=== PATIENT | female | born 1980 | race Caucasian/White ===

== ENCOUNTER 2017-11-14 10:14 | Inpatient (IN) | payer OTHER ==
[2017-11-14 11:29] VITALS: BMI 31.3
[2017-11-14] MEDS: Lactated Ringer's 1,000 ML IV SCH (12:00)
[2017-11-14 13:38] LABS: BASO % 0.3 % (0.0-2.0); EOS # 0.1 K/uL (0.0-0.7); EOS % 1.3 % (0.0-4.0); HEMOGLOBIN 11.9 g/dL (12.0-16.0); LYMPH # 1.7 K/uL (1.0-4.3); LYMPH % 16.9 % (20.0-40.0); MEAN CELL VOLUME 90.1 fl (81.0-99.0); MEAN CORPUSCULAR HGB CONC 34.4 g/dL (33.0-37.0); MEAN PLATELET VOLUME 10.7 fl (7.2-11.7); MONO # 0.6 K/uL (0.0-0.8); MONO % 5.5 % (0.0-10.0); NEUT # 7.9 K/uL (1.8-7.0); RBC 3.84 Mil/uL (3.80-5.20); WHITE BLOOD COUNT 10.3 K/uL (4.8-10.8)
--- NOTE | 2017-11-14 13:44 | OBADHP ---
Datetime: 11/14/2017 13:38 Admit Comment, IP Provider: Patient is a 37-year-old 1 para 0 estimated due date 11/24/2017 estimated gestational age 38+ weeks patient presents to labor and delivery complaining of spontaneous rupture of membranes at about 6:40 AM. Patient reports leakage of fluid fluid patient denies any vag inal bleeding she reports good movement she reports occasional contraction. care has b een unremarkable patient denies any complications Past medical history none Medications vitamins Social history denies alcohol tobacco use care administered by No known drug allergies care unremarkable Review of systems patient denies headache chest pain shortness of breath palpitations nausea vomit ing diarrhea heat or cold intolerance easy bruisability musculoskeletal neurological complaints Vital signs stable afebrile Physical exam see notes Intrauterine at 38+ weeks spontaneous rupture of membranes Vertex presentation Estimated weight 7-1/2 pounds Adequate pelvis Anticipate normal vaginal delivery Routine labs Pelvic Type - PN: Adequate Extremities - PN: Normal Abdomen - PN: Normal Back - PN: Not Done Breast - PN: Not Done Lungs - PN: Normal Heart - PN: Normal Thyroid - PN: Normal Neurologic - PN: Normal HEENT - PN: Normal General - PN: Normal Weight - Estimated: 61/2 Presentation-Admit: Vertex FHR - Baseline A Provider: 145 Comments, ACOG Physical Exam: External female genitalia gross rupture Sterile speculum exam positive pooling Sterile vaginal exam one centimeters 75% -2 Gestation - Est Wks by US: 38.0 Vital Signs Provider: Reviewed IP Chief Complaint: Suspected ruptured membranes NICHD Accel Fetus A IP Provider: [id number] NICHD Decel Fetus A IP Provider: None Dilatation, Provider: 1 Effacement, Provider: 75 Station, Provider: -2 Genitourinary Exam: Normal DTRs - PN: Normal EGA AdmitDate IP: 38.4 IP Adm Impression: Term, intrauterine ; No Active Labor; Ruptured Membranes IP Admit Plan: Admit to unit
[2017-11-14] MEDS ORDERED: Nalbuphine HCL 10 mg/ml Ampule IVP PRN (22:17)
[2017-11-15] MEDS ORDERED: Nalbuphine 20 mg/ml Inj (1 ml) ONE (00:22)
[2017-11-15] MEDS ORDERED: Oxytocin 30 units/LR 500ML 30 U/500 ML BAG IV ONE ×3 (03:00→11:17)
[2017-11-15] MEDS ORDERED: Fentanyl/Bupivacaine HCl 250 ML EPI ONE (03:26)
[2017-11-15] MEDS ORDERED: Lidocaine 2% PF (10 ml) Amp ONE (03:27)
[2017-11-15] MEDS: Lactated Ringer's 1,000 ML IV SCH ×2 (03:37→11:10)
[2017-11-15] MEDS ORDERED: LIDOCAINE HYDROCHLORIDE INJ ONE (08:31)
[2017-11-15] MEDS ORDERED: Oxycodone/Acetaminophen 5/325 mg Tab PO PRN (12:31)
[2017-11-15] MEDS: Benzocaine/Menthol SPRAY TOP PRN (23:13)
[2017-11-16 07:11] LABS: BASO % 0.2 % (0.0-2.0); EOS # 0.1 K/uL (0.0-0.7); EOS % 1.1 % (0.0-4.0); HEMOGLOBIN 9.9 g/dL (12.0-16.0); LYMPH # 1.9 K/uL (1.0-4.3); LYMPH % 15.1 % (20.0-40.0); MEAN CELL VOLUME 91.4 fl (81.0-99.0); MEAN CORPUSCULAR HEMOGLOBIN 31.1 pg (27.0-31.0); MEAN PLATELET VOLUME 10.2 fl (7.2-11.7); MONO # 0.5 K/uL (0.0-0.8); MONO % 3.8 % (0.0-10.0); NEUT # 9.9 K/uL (1.8-7.0); NEUT % 79.8 % (50.0-75.0); RBC 3.19 Mil/uL (3.80-5.20); RED CELL DISTRIBUTION WIDTH 13.2 % (11.5-14.5); WHITE BLOOD COUNT 12.4 K/uL (4.8-10.8)
--- NOTE | 2017-11-16 08:15 | OBDS ---
DELIVERY PERSONNEL Delivery Doctor: Christina Allan MD Hog Dropper: Nini Olmedo RN Anesthesiologist: Esther Tate MD Resident: Dr. LloydOBR MATERNAL INFORMATION Delivery Anesthesia: Epidural Medications in Delivery: Lidocaine 1%, Pitocin 30 mu/500 mL, Pitocin 20 mu/1000 mL Estimated Blood Loss (ml): 300 Placenta Cultured: Yes Maternal Complications: Premature Rupture of Membranes Provider Comments: Normal spontaneous vaginal delivery. Patient delivered viable female with Apgars of 9 and 9 at one and 5 minutes respectively. P lacenta delivered spontaneously. Laceration repaired, as above. Uterus firm and appropriately hemosta tic following delivery. Vaginal packing placed after delivery. Patient tolerated delivery and repair well. No complications. Estimated blood loss 300 mL. LABOR SUMMARY EDC: 11/24/2017 00:00 No. Babies in Womb: 1 Attempted: No Labor Anesthesia: Epidural LABOR INFORMATION Reason for Induction: Not Applicable Onset of Labor: 11/14/2017 06:40 Complete Dilatation: 11/15/2017 07:00 Oxytocin: N/A Group B Beta Strep: Negative Antibiotics # of Doses: N/A Antibiotics Time of Last Dose: N/A Steroids Given: None Reason Steroids Not Administered: Not Applicable MEMBRANES Membranes Rupture Method: Spontaneous Rupture of Membranes: 11/15/2017 06:40 Length of Rupture (hrs): 4.87 Amniotic Fluid Color: Clear Amniotic Fluid Amount: Moderate Amniotic Fluid Odor: Normal STAGES OF LABOR Stage 1 hrs: 24 Stage 1 min: 20 Stage 2 hrs: 4 Stage 2 min: 32 Stage 3 hrs: 0 Stage 3 min: 8 Total Time in Labor hrs: 29 Total Time in Labor min: 0 VAGINAL DELIVERY Episiotomy: None Laceration Extension: Third Degree Laceration Type: Perineal Laceration Repair: Yes Laceration Repair Note: Third degree midline perineal laceration. Area infiltrated with 1% lidocaine . Anal sphincter repaired with interrupted sutures of 0 Vicryl. The remainder laceration repaired wit h 2. 0 repeat without complication. Patient tolerated repair well. Initial Vag Sponge Count: 36 Final Vag Sponge Count: 36 Initial Vag Sharps Count: 5 Final Vag Sharps Count: 5 Sponge Count Correct: Yes Sharps Count Correct: Yes BABY A INFORMATION Delivery Date/Time: 11/15/2017 11:32 Method of Delivery: Vaginal Born in Route : Yes : N/A Forceps: N/A Vacuum Extraction: N/A Shoulder Dystocia : No SHOULDER DYSTOCIA BABY A Infant Delivery Date/Time: 11/15/2017 11:32 PRESENTATION/POSITION BABY A Presentation: Cephalic Cephalic Presentation: Vertex Breech Presentation: N/A PLACENTA INFORMATION BABY A Placenta Delivery Time : 11/15/2017 11:40 Placenta Method of Delivery: Spontaneous Placenta Status: Delivered SCORES BABY A Heart Rate 1 min: >100 bpm Resp Effort 1 min: Good Cry Reflex Irritability 1 min: Cough or Sneeze or Pulls Away Muscle Tone 1 min: Active Motion Color 1 min: Body [place], Extremities Blue Resuscitation Effort 1 min: N/A SCORE 1 MIN: 9 Heart Rate 5 min: >100 bpm Resp Effort 5 min: Good Cry Reflex Irritability 5 min: Cough or Sneeze or Pulls Away Muscle Tone 5 min: Active Motion Color 5 min: Body [place], Extremities Blue Resuscitation Effort 5 min: N/A SCORE 5 MIN: 9 INFORMATION BABY A Gestational Age at Delivery: 38.5 Gestational Status: Term Outcome : Liveborn Infant Condition : Stable Infant Sex: Female IDENTIFICATION/MEDS BABY A ID Band Location: Left Leg; Left Arm WEIGHT/LENGTH BABY A Birthweight (gms): 3505 Weight (lb): 7 Infant Weight (oz): 12 CORD INFORMATION BABY A No. Cord Vessels: 3 Nuchal Cord : N/A Cord Blood Taken: Yes Infant Suction: Mouth; Nose
[2017-11-16] MEDS: Benzocaine/Menthol SPRAY TOP PRN (08:28)
--- NOTE | 2017-11-16 10:34 | OBPPN ---
Datetime: 11/16/2017 10:31 PP Pain Prov: Within normal limits PP Nausea Prov: Denies PP Flatus Prov: Yes PP Breasts Prov: Normal PP Heart Prov: Normal PP Lungs Prov: Normal PP Abdomen/Uterus Prov: Normal PP Lochia Prov: Normal PP Vulva/Perineum Prov: Normal PP CVA Tenderness Prov: Normal PP Extremities Prov: Normal PP Progress Note Prov: Patient denies CP, no SOB, no N/v, tolerating PO diet, ambulating/voiding wel l, mild lochia, abdominal pain tolerable with meds A/P PPD #1 1. Removed vaginal packing, patient otherwise doing well 2. Continue all other orders Vital Signs Provider PP: Reviewed; Within Normal Limits
[2017-11-17] MEDS ORDERED: Docusate-Senna 50 mg-8.6 mg Tab PO STA ×2 (09:39→10:06)
--- NOTE | 2017-11-17 10:16 | OBPPN ---
Datetime: 11/17/2017 10:10 PP Pain Prov: Within normal limits PP Nausea Prov: Denies PP Flatus Prov: Yes PP BM Prov: No PP Breasts Prov: Normal PP Heart Prov: Normal PP Lungs Prov: Normal PP Abdomen/Uterus Prov: Normal PP Extremities Prov: Normal PP Progress Prov: Normal PP Comments Phys Exam Prov: [id number] PP Impression Prov: Normal progression PP Plan Prov: Discharge PP Progress Note Prov: s: no bm, feels need to evacuate but has pain at site and is afraid to strain /push. motrin alleviating pain i: ppd 2 h/o 3rd degree lacer no bm anemia p:sitz baths d/w pt for perineal discomfort rx senokot s stat- d/w pt laxative helps w/ bm and minmizes strain rx fesor qd w/ of x1mo, pt advised if develps constipation to take 1-2x/wk until completed. leafy greens, cooking in cast iron pot rx motrin, pnv, senokot s for d/c meds IP PP Procedures: None
--- NOTE | 2017-11-17 10:18 | OBDCSUM ---
Datetime: 11/17/2017 10:15 Discharged to, Provider: Home Follow up at, Provider: [id number] Disch Instr Activity: Normal activity Disch Instr Diet: Regular Discharge Instructions, Provider: Routine instructions given Discharge Diagnosis, Provider: Term Delivered Follow up in weeks, Provider: dr gutiérrez Disch Activity Restrictions: No sexual activity; Nothing in vagina - [place], tampons, douche Discharge Comment, Provider: p:sitz baths d/w pt for perineal discomfort rx senokot s stat- d/w pt laxative helps w/ bm and minmizes strain rx fesor qd x1mo, pt advised if develps constipation to take 1-2x/wk until completed. leafy greens , cooking in cast iron pot rx motrin, pnv, senokot s for d/c meds Contraception after Delivery: Undecided
[2017-11-17] MEDS ORDERED: Hydrocortisone-Pramoxine 1%-1% Foam(10 gm) TOP SCH (13:00)
[2017-11-17 23:06] VITALS: BP 112/55; PULSE 84; RESP 18; TEMP 98.3; O2SAT 100
== END 2017-11-17 13:50 | disposition home or self-care (01) | DRG 775 ==
LOC: H.EROB2 10:14 → H.L&D 10:50 → H.EROB2 13:36 → H.OB/GYN 11-15 14:45
PROVIDERS: ADMIT Obstetrics & Gynecology Gynecology; ATTEND Obstetrics & Gynecology Gynecology
PROC: 4A1HXCZ Monitoring of Products of Conception, Cardiac Rate, External Approach (ICD-10-PCS; 2017-11-14)
PROC: 10E0XZZ Delivery of Products of Conception, External Approach (ICD-10-PCS; principal; 2017-11-15)
PROC: 0DQR0ZZ Repair Anal Sphincter, Open Approach (ICD-10-PCS; 2017-11-15)
DX: O70.20 Third degree perineal laceration during delivery, unspecified (principal); O90.81 Anemia of the puerperium; D64.9 Anemia, unspecified; Z37.0 Single live birth; Z3A.38 38 weeks gestation of pregnancy; O09.513 Supervision of elderly primigravida, third trimester